=== PATIENT | female | born 1955 | race Caucasian/White ===

== ENCOUNTER → 2019-07-03 08:48 | Outpatient (CLI) | payer SELFPAY ==
--- NOTE | 2019-07-14 08:12 | PM.PFT.1 ---
Pulmonary Function Test Referral & Results Date Patient Seen: 07/03/19 Requesting provider: Bryce Mora Results: The spirometry demonstrates an FVC of 2.69 L which is 84% of predicted. The FEV1 was measured at 1.95 L which is 79% of predicted. The FEV1/FVC ratio was 73 which is 93% of predicted. Following the administration of bronchodilator there was a 35% improvement in FEF 25-75%. Lung volumes show an SVC of 2.37 L which is 79% of predicted. The diffusing capacity was measured at 23.7 which is 97% of predicted. The maximum voluntary ventilation was normal Interpretation: This study suggests mild to moderate obstructive lung disease based on reduction FEV1 and there is also limited evidence of benefit following bronchodilator particularly small airway flow based on improvement in FEF 25-75% as above. Looking of flow volume loop there does appear to be evidence of obstructive lung disease based on this result as well There is also mild reduction in lung volumes suggesting mild restrictive lung disease
== END ==
PROVIDERS: PCP Nurse Practitioner Family; Visit Provider Nurse Practitioner Family
DX: J45.909 Unspecified asthma, uncomplicated (principal); R06.09 Other forms of dyspnea; J98.8 Other specified respiratory disorders
CPT/HCPCS: 94060; 94726; 94729